=== PATIENT | female | born 1985 | race Caucasian/White ===

== ENCOUNTER 2016-10-26 13:57 | Emergency (ER) | payer OTHER ==
--- NOTE | 2016-10-26 16:16 | ED CLINICAL REPORT ---
Clinical Report - Physicians/Mid Levels [facility] [address] [place] [address] 10/26/2016 13:59 Patient: ANCA GUILLEN Time Seen: 14:09. Arrived- By private vehicle. Historian- patient. HISTORY OF PRESENT ILLNESS Chief Complaint: VAGINAL BLEEDING. ABDOMINAL CRAMPS. This started yesterday and still present. (moderate to severe). Modifying factors. Not worsened by anything. Not relieved by anything. The patient has had abdominal pain. No vaginal pain, low back pain, flank pain, pain with urination or urinary frequency. No urgency of urination. She has had irregular periods. Sexually active. (The patient states that the abdominal pain and cramping started with onset of vaginal bleeding yesterday. She states she has a history of polycystic ovarian disease, and that she has occasional severe cramps with menses. Patient states her last menstrual period was beginning of September. The patient states that her level bleeding goes up and down. At some points she has soaked 2 tampons an hour; however she changed her tampon about an hour ago and has not had any blood leakage yet.). Denies current . Similar symptoms previously: Occasionally. Recent medical care: Not recently seen/assessed. REVIEW OF SYSTEMS The patient has had nausea. She has had vomiting. No diarrhea, black stools, headache, fever or chills. No eye discomfort, sore throat, cough, difficulty breathing or chest pain. No skin rash, enlarged lymph nodes or joint pain. All systems otherwise negative, except as recorded above. PAST HISTORY Problems: Constipation. Gastroesophageal Reflux Disease. Clostridium difficile infection. Polycystic Ovary Disease. Diabetes Mellitus. Irritable Bowel Syndrome. Anxiety Reaction. Depression. Additional Surgeries: no known surgeries. Medications: None. Allergies: Hydrocodone. Morphine and Related. SOCIAL HISTORY Smoker- current status unknown. Occasional alcohol use. History of drug use: marijuana. ADDITIONAL NOTES The nursing notes have been reviewed. PHYSICAL EXAM Vital Signs: 10/26/2016 14:07 BP: 139/97. HR: 78. RR: 19. O2 saturation: 100%. Temp: 98.2 F. Pain level now: 8/10. Have been reviewed. Appearance: Alert. Oriented X3. No acute distress. HEENT: Normal external inspection. Neck: Neck supple. CVS: Heart sounds normal. Respiratory: No respiratory distress. Breath sounds normal. Abdomen: Soft. Moderate tenderness in the lower abdomen. Skin: Skin warm and dry. Normal skin color. No rash. Normal skin turgor. Extremities: Extremities nontender. No lower extremity edema. Neuro: (Grossly normal.). LABS, X-RAYS, AND EKG Laboratory Tests: UA-Culture if indicated: (TELLO: 10/26/2016 16:41) ( [facility] 10/26/2016 16:51) IP Test Result Flag Units (Reference) URINE COLOR YELLOW URINE APPEARANCE CLEAR URINE GLUCOSE NEGATIVE (NEGATIVE) URINE BILIRUBIN NEGATIVE (NEGATIVE) URINE KETONE TRACE (NEGATIVE) URINE SPECIFIC GRAVITY 1.020 (1.010-1.030) URINE PH 8.5 H (5.0-8.0) URINE PROTEIN TRACE (NEGATIVE) URINE UROBILINOGEN 0.2 EU/dL (0.2-1.0) URINE NITRITE NEGATIVE (NEGATIVE) URINE BLOOD 2+ (NEGATIVE) URINE LEUK ESTERASE NEGATIVE (NEGATIVE) Urine: (TELLO: 10/26/2016 16:41) ( [facility] 10/26/2016 16:50) Final results Test Result Flag Units (Reference) URINE NEGATIVE CBC w Diff: (TELLO: 10/26/2016 14:15) ( [facility] 10/26/2016 14:35) Final results Test Result Flag Units (Reference) WHITE BLOOD COUNT 13.3 H K/uL (4.5-11.5) RED BLOOD COUNT 4.81 M/uL (4.00-5.20) HEMOGLOBIN 12.7 gm/dL (12.0-16.0) HEMATOCRIT 38.6 % (36.0-46.0) MEAN CELL VOLUME 80 fL (80-100) MEAN CORPUSCULAR HGB 26 pg (26-34) MEAN CORPUSCULAR HGB CONC 33 g/dL (31-37) RED CELL DISTRIBUTION WIDTH 13.7 % (11.6-14.8) PLATELET COUNT 385 K/uL (150-400) NEUTROPHIL % 81.0 H % (50-75) LYMPH % 11.7 L % (25-40) MONO % 4.4 % (3-14) EOSINOPHIL % 2.3 % (0-4) BASOPHIL % 0.6 % (0-2) PT with INR: (TELLO: 10/26/2016 14:15) ( [facility] 10/26/2016 14:39) Final results Test Result Flag Units (Reference) INR 1.0 (0.8-1.2) Low Intensity Therapy: INR 1.5-2.0 PT range 18.5-23.1Mod.Intensity Therapy: INR 2.0-3.0 PT range 23.1-31.5High Intensity Therapy: INR 2.5-3.5 PT range 27.4-35.5High Intensity Therapy 2: INR 3.0-4.0 PT range 31.5-39.3 Serum Quantitative: (TELLO: 10/26/2016 14:15) ( [facility] 10/26/2016 14:55) Final results Test Result Flag Units (Reference) GLUCOSE 116 H mg/dL (70-110) BUN 10 mg/dL (7-18) CREATININE 0.7 mg/dL (0.6-1.3) Estimated GFR >60 mL/min Estimated GFR- >60 mL/min Note: Persistent reduction over 3 months in eGFR<60 mL/min/1.73 m2 defines CKD. Patients with eGFR values>=60 mL/min/1.73 m2 may also have CKD if evidence ofpersistent proteinuria. Additional information may be foundat www.kidney.org. SODIUM 143 mmol/L (136-145) POTASSIUM 3.3 L mmol/L (3.5-5.1) CHLORIDE 104 mmol/L (98-107) CARBON DIOXIDE 25 mmol/L (21-32) CALCIUM 9.5 mg/dL (8.5-10.1) BETA HCG, QUANTITATIVE <1 mIU/mL REFERENCE RANGE:Adult Males: <2 mIU/mLNon- Females: <6 mIU/mL Females:Approximate Approximate hCGGestational Age Range (mIU/mL) 0-1 week 0-501-2 weeks 40-3002-3 weeks 100-76034-5 weeks 500-84604-5 months 5,000-200,0002-3 months 10,000-100,0002nd trimester 3,000-50,0003rd trimester 1,000-50,000 Type & Screen: (TELLO: 10/26/2016 14:15) ( MsgRcvd 10/26/2016 15:19) Final results Test Result Flag Units (Reference) PATIENT BLOOD TYPE A Positive ANTIBODY SCREEN NEGATIVE . Pulse Oximetry: 10/26/2016 14:07 O2 saturation: 100%. (FIO2 - room air). Interpretation: normal. PROGRESS AND PROCEDURES Course of Care: patient was given a liter fluid, as well as doses of Dilaudid and Zofran and Phenergan and Reglan. She was worked up with a urinalysis which was negative, and ultrasound which was unremarkable, and blood work which showed a normal H&H. test was negative. Patient was found to be feeling better after the above interventions the onset of her pain and bleeding were simultaneous, and her lower abdominal tenderness is nonfocal. I do not believe at this time that the patient has appendicitis or urinary calculi. Patient counseled in person regarding the patient's stable condition, test results, diagnosis and need for follow-up. Old medical records reviewed. Disposition: Discharged. Condition: stable. CLINICAL IMPRESSION Moderate dysfunctional uterine bleeding. INSTRUCTIONS Drink plenty of fluids. (Your ultrasound and blood work look good.). Warnings: GENERAL WARNINGS: Return or contact your physician immediately if your condition worsens or changes unexpectedly, if not improving as expected, or if other problems arise. Prescription Medications: Zofran (orally disintegrating tablets) 4 mg: take 1-2 orally every 6 hours as needed for nausea. Dispense twenty (20). No refill. Substitution is permissible. Oxycodone/APAP 5 mg/325 mg: take 1-2 tablets orally every 6 hours as needed for pain. Dispense fifteen (15). No refill. Follow-up: Follow up with a script coordinator. Call for the next available appointment. Reason for referral: Follow up pelvic pain. Understanding of the discharge instructions verbalized by patient. (Electronically signed by Orly Ness MD 10/28/2016 3:05)
--- NOTE | 2016-10-26 16:16 | ED ORDER SUMMARY ---
..... Patient: ANCA GUILLEN OrderSheet [facility] VisitID: [id number] [address] [place] [address] 31y, F Registration Date/Time: 10/26/2016 ORDER SHEET Weight: 124.7 kg Allergies: Hydrocodone, Morphine and Related GENERAL ORDERS: CBC w Diff Urgent (14:10/26/2016 EHassan R.N. per protocol) (Ack 14:28 NHouse ER Tech1) (14:37 KPage-Kuchan R.N.) BMP Urgent (14:10/26/2016 EHassan R.N. per protocol) (Ack 14:28 NHouse ER Tech1) (14:37 KPage-Kuchan R.N.) Urine Urgent (14:10/26/2016 EHassan R.N. per protocol) (Ack 14:28 PAouse ER Tech1) (17:10 KPage-Kuchan R.N.) Serum Quantitative Urgent (14:10/26/2016 EHassan R.N. per protocol) (Ack 14:28 PAouse ER Tech1) (14:37 KPage-Kuchan R.N.) Type & Screen Urgent (14:26 10/26/2016 EHassan R.N. per protocol) (Ack 14:28 PAouse ER Tech1) (14:37 KPage-Kuchan R.N.) PT with INR Urgent (14:10/26/2016 EHassan R.N. per protocol) (Ack 14:28 PAouse ER Tech1) (14:37 KPage-Kuchan R.N.) UA-Culture if indicated Urgent (14:10/26/2016 EHassan R.N. per protocol) (Ack 14:28 NHouse ER Tech1) (17:10 KPage-Kuchan R.N.) NPO (14:10/26/2016 EHassan R.N. per protocol) (14:28 NHouse ER Tech1) US Pelvic Complete w Transvag Urgent (15:18 10/26/2016 Maki ZACARIAS) (Ack 15:21 PAouse ER Tech1) (17:10 KPage-Kuchan R.N.) MEDICATION ORDERS: Phenergan IV 25 mg (HIGH ALERT MEDICATION, NOW) (15:18 10/26/2016 Maki ZACARIAS) (15:24 Cari R.N.) IV FLUIDS: IV NS : initial bolus none -, then 1000 mL/hr for X1 (NOW) (14:24 10/26/2016 Cari R.N. verbal order read back to Maki ZACARIAS) (14:25 Cari R.N.) Zofran IV 4 mg (NOW) (14:10/26/2016 Cari R.N. verbal order read back to Maki ZACARIAS) (14:25 Cari R.N.) IV Saline Lock (14:10/26/2016 Cari R.N. per protocol) (14:26 Cari R.N.) Dilaudid IV 1 mg (HIGH ALERT MEDICATION, NOW) (14:27 10/26/2016 Maki ZACARIAS) (14:37 Aretha R.N.) Toradol IV 30 mg (NOW) (14:27 10/26/2016 Maki ZACARIAS) (14:37 Aretha R.N.) Benadryl IV 25 mg (NOW) (15:18 10/26/2016 Maki ZACARIAS) (15:23 Cari R.N.) Dilaudid IV 1 mg (HIGH ALERT MEDICATION, NOW) (15:25 10/26/2016 Maki ZACARIAS) (Ack 15:43 Aretha R.N.) (15:55 Aretha R.N.) Dilaudid IV 1 mg (HIGH ALERT MEDICATION, NOW) (16:57 10/26/2016 Maki ZACARIAS) (Ack 16:58 Ed-Arron R.N.) (17:13 Aretha R.N.) Reglan IV 10 mg (NOW) (16:57 10/26/2016 Maki ZACARIAS) (Ack 16:58 Ed-Arron R.N.) (17:14 Aretha R.N.) ORDER SHEET NOTES: [Electronically signed by Christine Saez R.N. (23:21 10/26/2016)] [Electronically signed by Orly Ness MD (03:05 10/28/2016)] [Electronically locked/signed by Christine Saez R.N. (23:21 10/26/2016)]
--- NOTE | 2016-10-26 16:16 | ED ORDER SUMMARY ---
..... Patient: ANCA GUILLEN OrderSheet [facility] VisitID: [id number] [address] [place] [address] 31y, F Registration Date/Time: 10/26/2016 ORDER SHEET Weight: 124.7 kg Allergies: Hydrocodone, Morphine and Related GENERAL ORDERS: CBC w Diff Urgent (14:10/26/2016 EHassan R.N. per protocol) (Ack 14:28 NHouse ER Tech1) (14:37 KPage-Kuchan R.N.) BMP Urgent (14:10/26/2016 EHassan R.N. per protocol) (Ack 14:28 NHouse ER Tech1) (14:37 KPage-Kuchan R.N.) Urine Urgent (14:10/26/2016 EHassan R.N. per protocol) (Ack 14:28 MAouse ER Tech1) (17:10 KPage-Kuchan R.N.) Serum Quantitative Urgent (14:10/26/2016 EHassan R.N. per protocol) (Ack 14:28 MAouse ER Tech1) (14:37 KPage-Kuchan R.N.) Type & Screen Urgent (14:26 10/26/2016 EHassan R.N. per protocol) (Ack 14:28 MAouse ER Tech1) (14:37 KPage-Kuchan R.N.) PT with INR Urgent (14:10/26/2016 EHassan R.N. per protocol) (Ack 14:28 MAouse ER Tech1) (14:37 KPage-Kuchan R.N.) UA-Culture if indicated Urgent (14:10/26/2016 EHassan R.N. per protocol) (Ack 14:28 NHouse ER Tech1) (17:10 KPage-Kuchan R.N.) NPO (14:10/26/2016 EHassan R.N. per protocol) (14:28 NHouse ER Tech1) US Pelvic Complete w Transvag Urgent (15:18 10/26/2016 Maki ZACARIAS) (Ack 15:21 MAouse ER Tech1) (17:10 KPage-Kuchan R.N.) MEDICATION ORDERS: Phenergan IV 25 mg (HIGH ALERT MEDICATION, NOW) (15:18 10/26/2016 Maki ZACARIAS) (15:24 Cari R.N.) IV FLUIDS: IV NS : initial bolus none -, then 1000 mL/hr for X1 (NOW) (14:24 10/26/2016 Cari R.N. verbal order read back to Maki ZACARIAS) (14:25 Cari R.N.) Zofran IV 4 mg (NOW) (14:10/26/2016 Cari R.N. verbal order read back to Maki ZACARIAS) (14:25 Cari R.N.) IV Saline Lock (14:10/26/2016 Cari R.N. per protocol) (14:26 Cari R.N.) Dilaudid IV 1 mg (HIGH ALERT MEDICATION, NOW) (14:27 10/26/2016 Maki ZACARIAS) (14:37 Aretha R.N.) Toradol IV 30 mg (NOW) (14:27 10/26/2016 Maki ZACARIAS) (14:37 Aretha R.N.) Benadryl IV 25 mg (NOW) (15:18 10/26/2016 Maki ZACARIAS) (15:23 Cari R.N.) Dilaudid IV 1 mg (HIGH ALERT MEDICATION, NOW) (15:25 10/26/2016 Maki ZACARIAS) (Ack 15:43 Aretha R.N.) (15:55 Aretha R.N.) Dilaudid IV 1 mg (HIGH ALERT MEDICATION, NOW) (16:57 10/26/2016 Maki ZACARIAS) (Ack 16:58 Ed-Arron R.N.) (17:13 Aretha R.N.) Reglan IV 10 mg (NOW) (16:57 10/26/2016 Maki ZACARIAS) (Ack 16:58 Ed-Arron R.N.) (17:14 Aretha R.N.) ORDER SHEET NOTES: [Electronically signed by Christine Saez R.N. (23:21 10/26/2016)] [Electronically signed by Orly Ness MD (03:05 10/28/2016)] [Electronically locked/signed by Christine Saez R.N. (23:21 10/26/2016)]
--- NOTE | 2016-10-26 16:16 | ED NURSING NOTES ---
Clinical Report - Nurses [facility] [address] [place] [address] 10/26/2016 13:59 Patient: ANCA GUILLEN TRIAGE Triage time 14:Oct 26 2016. Chief Complaint: VAGINAL BLEED and ABDOMINAL CRAMPS (pt started bleeding yesterday, reports not having normal periods due to pcos, today emesis not stop per pt, states 2 tampons in one hour). Alert. SEPSIS SCREEN: Sepsis Screen. Negative (no infection suspected/documented). --14:13 Christine Saez R.N. 14:07 10/26/16. BP: 139/97. HR: 78. RR: 19. O2 saturation: 100%. Temp: 98.2 F. Pain level now: 01/13. --14:13 Christine Saez R.N. Weight: 124.7 kg. Height/Length: 68 inches. BMI: 41.8. --14:12 Christine Saez R.N. Medications None. --14:11 Christine Saez R.N. Medication/allergy information source: the patient. --14:13 Christine Saez R.N. Allergies Hydrocodone. Morphine and Related. --14:11 Christine Saez R.N. History Arrived by private vehicle. Historian: patient. Accompanied by friend. This started yesterday. PAST MEDICAL HX: Immunizations: up-to-date. Last normal menstrual period- 1 days ago. SOCIAL HX: Smoker- current status unknown. Occasional alcohol use. History of drug use: marijuana. No infectious disease exposure. ABUSE ASSESSMENT: No report of abuse. SELF HARM ASSESSMENT: A self harm assessment was performed. The patient answered "no" to the question "Do you have thoughts of harming or killing yourself?". --14:13 Christine Saez R.N. PROBLEMS: UTI - Urinary Tract Infection. Gastroesophageal Reflux Disease. Clostridium difficile infection. Polycystic Ovary Disease. Irritable Bowel Syndrome. Depression. --14:11 Christine Saez R.N. ADDITIONAL SURGERIES: no known surgeries. Interventions ID and allergy band on patient. --14:13 Christine Saez R.N. PHYSICAL ASSESSMENT To room via wheelchair. Patient gowned. GENERAL / NEURO / PSYCH: Alert. Oriented X 4. Appears in pain. HEENT: Mucous membranes are pink. RESPIRATORY: Respirations not labored. CVS: Capillary refill less than 2 seconds. GI / : Abdomen soft. Bowel sounds within normal limits. Moderate vaginal bleeding present .1 pad per hour. SKIN: Skin is warm and dry. --14:14 Christine Saez R.N. NURSING PROGRESS NOTES 14:14 10/26/2016 Site #1 started via IV antecubital space with an 20g angiocath; one attempt. Blood drawn: rainbow set. Labeled in the presence of the patient and sent to the lab. Saline lock flushed with 10 mL saline. --14:14 Christine Saez R.N. Reassurance given to the patient. Patient identifiers checked. Call light placed in reach. Side rails up. Bed placed in lowest position. Brakes of bed on. Patient ready for evaluation- chart flagged. Patient waiting for evaluation. --14:15 Christine Saez R.N. ( pt provided an additional emesis bag, pt is coughing and spitting in). --14:24 Christine Saez R.N. ( MD at bedside, waiting further orders). --14:24 Christine Saez R.N. 14:25 10/26/2016 Started bag #1 1000 mL IV Fluids IV NS (Saline); at 1000 mL/hr over 1 hour(s) via site #1 via IV pump. Allergies verified and confirmed 5 rights. IV patency established. IV site checked: no pain, redness, or swelling. IV flushed thoroughly pre- and post-medication administration. --14:25 Ruma Holliday R.N. 14:25 10/26/2016 Zofran (Ondansetron HCl) IVP 4 mg given over 2 minute(s) via site #1. Allergies verified and confirmed 5 rights. IV patency established. IV site checked: no pain, redness, or swelling. IV flushed thoroughly pre- and post-medication administration. IVP given by RN. --14:25 Ruma Holliday R.N. 14:32 10/26/2016 Dilaudid (HYDROmorphone HCl PF) IVP 1 mg given. via site #1. Allergies verified, confirmed 5 rights and sedative warning given to the patient and patient's steward/stewardess third. IV patency established. IV site checked: no pain, redness, or swelling. IV flushed thoroughly pre- and post-medication administration. IVP given by RN. --14:37 Christine Saez R.N. 14:32 10/26/2016 Toradol IVP 30 mg given. via site #1. Allergies verified and confirmed 5 rights. IV patency established. IV site checked: no pain, redness, or swelling. IV flushed thoroughly pre- and post-medication administration. IVP given by RN. --14:37 Christine Saez R.N. ( pt placed on O2 sat monitor and bp prior to narcotic being given). --14:38 Christine Saez R.N. 15:23 10/26/2016 Benadryl (DiphenhydrAMINE HCl) IVP 25 mg given over 30 second(s) via site #1. Allergies verified, confirmed 5 rights and sedative warning given to the patient and patient's family. IV patency established. IV site checked: no pain, redness, or swelling. IV flushed thoroughly pre- and post-medication administration. IVP given by RN. --15:23 Ruma Holliday R.NMaría Elena 15:24 10/26/2016 PHENERGAN (Promethazine HCl) IVP 25 mg given over 30 second(s) via site #1. Allergies verified and confirmed 5 rights. IV patency established. IV site checked: no pain, redness, or swelling. IV flushed thoroughly pre- and post-medication administration. IVP given by RN. --15:24 Ruma Holliday R.NMaría Elena 15:47 10/26/2016 Dilaudid (HYDROmorphone HCl PF) IVP 1 mg given. via site #1. Allergies verified, confirmed 5 rights and sedative warning given to the patient. IV patency established. IV site checked: no pain, redness, or swelling. IV flushed thoroughly pre- and post-medication administration. IVP given by RN. --15:55 Christine Saez R.N. 17:13 10/26/2016 Dilaudid (HYDROmorphone HCl PF) IVP 1 mg given. via site #1. Allergies verified, confirmed 5 rights and sedative warning given to the patient and patient's family. IV patency established. IV site checked: no pain, redness, or swelling. IV flushed thoroughly pre- and post-medication administration. IVP given by RN. --17:13 Christine Saez R.N. 17:14 10/26/2016 Reglan (Metoclopramide HCl) IVP 10 mg given. via site #1. Allergies verified and confirmed 5 rights. IV patency established. IV site checked: no pain, redness, or swelling. IV flushed thoroughly pre- and post-medication administration. IVP given by RN (sivp over 2 minutes). --17:14 Christine Saez R.N. DISPOSITION / DISCHARGE Condition at departure: improved. No learning barriers present. Discharge instructions provided and reviewed with the patient. Reviewed medication(s) side effects, precautions and course information. Prescription(s) given to the patient. Patient verbalized understanding. Written instructions provided in Nepali. The patient was discharged by the physician. She was discharged home and accompanied by family. She left the Emergency Department ambulatory and via private vehicle. Family member driving. ( pt dc home with family, reports improvement in symptoms, no emesis, pain 10, rx given ambulatory to lobby with steady gait). --18:05 Christine Saez R.N. 18:04 10/26/16. BP: 122/72. HR: 67. RR: 15. O2 saturation: 99%. Temp: 98 F. Pain level now: 09/13. --18:05 Christine Saez R.N. 17:40 10/26/2016 Site #1 removed upon discharge. Bandaid applied. --18:05 Christine Saez R.N. Locked/Released at 10/26/2016 23:21 by Christine Saez R.N.
--- NOTE | 2016-10-26 16:16 | ED CLINICAL REPORT ---
Clinical Report - Physicians/Mid Levels [facility] [address] [place] [address] 10/26/2016 13:59 Patient: ANCA GUILLEN Time Seen: 14:09. Arrived- By private vehicle. Historian- patient. HISTORY OF PRESENT ILLNESS Chief Complaint: VAGINAL BLEEDING. ABDOMINAL CRAMPS. This started yesterday and still present. (moderate to severe). Modifying factors. Not worsened by anything. Not relieved by anything. The patient has had abdominal pain. No vaginal pain, low back pain, flank pain, pain with urination or urinary frequency. No urgency of urination. She has had irregular periods. Sexually active. (The patient states that the abdominal pain and cramping started with onset of vaginal bleeding yesterday. She states she has a history of polycystic ovarian disease, and that she has occasional severe cramps with menses. Patient states her last menstrual period was beginning of September. The patient states that her level bleeding goes up and down. At some points she has soaked 2 tampons an hour; however she changed her tampon about an hour ago and has not had any blood leakage yet.). Denies current . Similar symptoms previously: Occasionally. Recent medical care: Not recently seen/assessed. REVIEW OF SYSTEMS The patient has had nausea. She has had vomiting. No diarrhea, black stools, headache, fever or chills. No eye discomfort, sore throat, cough, difficulty breathing or chest pain. No skin rash, enlarged lymph nodes or joint pain. All systems otherwise negative, except as recorded above. PAST HISTORY Problems: Constipation. Gastroesophageal Reflux Disease. Clostridium difficile infection. Polycystic Ovary Disease. Diabetes Mellitus. Irritable Bowel Syndrome. Anxiety Reaction. Depression. Additional Surgeries: no known surgeries. Medications: None. Allergies: Hydrocodone. Morphine and Related. SOCIAL HISTORY Smoker- current status unknown. Occasional alcohol use. History of drug use: marijuana. ADDITIONAL NOTES The nursing notes have been reviewed. PHYSICAL EXAM Vital Signs: 10/26/2016 14:07 BP: 139/97. HR: 78. RR: 19. O2 saturation: 100%. Temp: 98.2 F. Pain level now: 8/10. Have been reviewed. Appearance: Alert. Oriented X3. No acute distress. HEENT: Normal external inspection. Neck: Neck supple. CVS: Heart sounds normal. Respiratory: No respiratory distress. Breath sounds normal. Abdomen: Soft. Moderate tenderness in the lower abdomen. Skin: Skin warm and dry. Normal skin color. No rash. Normal skin turgor. Extremities: Extremities nontender. No lower extremity edema. Neuro: (Grossly normal.). LABS, X-RAYS, AND EKG Laboratory Tests: UA-Culture if indicated: (TELLO: 10/26/2016 16:41) ( [facility] 10/26/2016 16:51) IP Test Result Flag Units (Reference) URINE COLOR YELLOW URINE APPEARANCE CLEAR URINE GLUCOSE NEGATIVE (NEGATIVE) URINE BILIRUBIN NEGATIVE (NEGATIVE) URINE KETONE TRACE (NEGATIVE) URINE SPECIFIC GRAVITY 1.020 (1.010-1.030) URINE PH 8.5 H (5.0-8.0) URINE PROTEIN TRACE (NEGATIVE) URINE UROBILINOGEN 0.2 EU/dL (0.2-1.0) URINE NITRITE NEGATIVE (NEGATIVE) URINE BLOOD 2+ (NEGATIVE) URINE LEUK ESTERASE NEGATIVE (NEGATIVE) Urine: (TLELO: 10/26/2016 16:41) ( [facility] 10/26/2016 16:50) Final results Test Result Flag Units (Reference) URINE NEGATIVE CBC w Diff: (TELLO: 10/26/2016 14:15) ( [facility] 10/26/2016 14:35) Final results Test Result Flag Units (Reference) WHITE BLOOD COUNT 13.3 H K/uL (4.5-11.5) RED BLOOD COUNT 4.81 M/uL (4.00-5.20) HEMOGLOBIN 12.7 gm/dL (12.0-16.0) HEMATOCRIT 38.6 % (36.0-46.0) MEAN CELL VOLUME 80 fL (80-100) MEAN CORPUSCULAR HGB 26 pg (26-34) MEAN CORPUSCULAR HGB CONC 33 g/dL (31-37) RED CELL DISTRIBUTION WIDTH 13.7 % (11.6-14.8) PLATELET COUNT 385 K/uL (150-400) NEUTROPHIL % 81.0 H % (50-75) LYMPH % 11.7 L % (25-40) MONO % 4.4 % (3-14) EOSINOPHIL % 2.3 % (0-4) BASOPHIL % 0.6 % (0-2) PT with INR: (TELLO: 10/26/2016 14:15) ( [facility] 10/26/2016 14:39) Final results Test Result Flag Units (Reference) INR 1.0 (0.8-1.2) Low Intensity Therapy: INR 1.5-2.0 PT range 18.5-23.1Mod.Intensity Therapy: INR 2.0-3.0 PT range 23.1-31.5High Intensity Therapy: INR 2.5-3.5 PT range 27.4-35.5High Intensity Therapy 2: INR 3.0-4.0 PT range 31.5-39.3 Serum Quantitative: (TELLO: 10/26/2016 14:15) ( [facility] 10/26/2016 14:55) Final results Test Result Flag Units (Reference) GLUCOSE 116 H mg/dL (70-110) BUN 10 mg/dL (7-18) CREATININE 0.7 mg/dL (0.6-1.3) Estimated GFR >60 mL/min Estimated GFR- >60 mL/min Note: Persistent reduction over 3 months in eGFR<60 mL/min/1.73 m2 defines CKD. Patients with eGFR values>=60 mL/min/1.73 m2 may also have CKD if evidence ofpersistent proteinuria. Additional information may be foundat [email or web address]. SODIUM 143 mmol/L (136-145) POTASSIUM 3.3 L mmol/L (3.5-5.1) CHLORIDE 104 mmol/L (98-107) CARBON DIOXIDE 25 mmol/L (21-32) CALCIUM 9.5 mg/dL (8.5-10.1) BETA HCG, QUANTITATIVE <1 mIU/mL REFERENCE RANGE:Adult Males: <2 mIU/mLNon- Females: <6 mIU/mL Females:Approximate Approximate hCGGestational Age Range (mIU/mL) 0-1 week 0-501-2 weeks 40-3002-3 weeks 100-93375-0 weeks 500-48401-8 months 5,000-200,0002-3 months 10,000-100,0002nd trimester 3,000-50,0003rd trimester 1,000-50,000 Type & Screen: (TELLO: 10/26/2016 14:15) ( MsgRcvd 10/26/2016 15:19) Final results Test Result Flag Units (Reference) PATIENT BLOOD TYPE A Positive ANTIBODY SCREEN NEGATIVE . Pulse Oximetry: 10/26/2016 14:07 O2 saturation: 100%. (FIO2 - room air). Interpretation: normal. PROGRESS AND PROCEDURES Course of Care: patient was given a liter fluid, as well as doses of Dilaudid and Zofran and Phenergan and Reglan. She was worked up with a urinalysis which was negative, and ultrasound which was unremarkable, and blood work which showed a normal H&H. test was negative. Patient was found to be feeling better after the above interventions the onset of her pain and bleeding were simultaneous, and her lower abdominal tenderness is nonfocal. I do not believe at this time that the patient has appendicitis or urinary calculi. Patient counseled in person regarding the patient's stable condition, test results, diagnosis and need for follow-up. Old medical records reviewed. Disposition: Discharged. Condition: stable. CLINICAL IMPRESSION Moderate dysfunctional uterine bleeding. INSTRUCTIONS Drink plenty of fluids. (Your ultrasound and blood work look good.). Warnings: GENERAL WARNINGS: Return or contact your physician immediately if your condition worsens or changes unexpectedly, if not improving as expected, or if other problems arise. Prescription Medications: Zofran (orally disintegrating tablets) 4 mg: take 1-2 orally every 6 hours as needed for nausea. Dispense twenty (20). No refill. Substitution is permissible. Oxycodone/APAP 5 mg/325 mg: take 1-2 tablets orally every 6 hours as needed for pain. Dispense fifteen (15). No refill. Follow-up: Follow up with a software product specialist. Call for the next available appointment. Reason for referral: Follow up pelvic pain. Understanding of the discharge instructions verbalized by patient. (Electronically signed by Orly Ness MD 10/28/2016 3:05)
--- NOTE | 2016-10-26 16:34 | DIAGNOSTIC IMAGING REPORT ---
PROCEDURE: US COMPLETE PELVIC W/TRANSVAG INDICATION: PELVIC PAIN TECHNIQUE: Transabdominal and endovaginal lion scale and color Doppler sonographic images of the female pelvis were obtained. COMPARISON: None. FINDINGS: Nabothian cysts TRANSABDOMINAL SCANS: The uterus is of normal size 5.2 x 4.0 x 5.3 cm Kidneys are normal. TRANSVAGINAL SCANS: The uterus is anteverted. Myometrium is normal. The endometrium measures 10 mm. Ovaries were not well seen. There is a trace of free fluid IMPRESSION: 1. Normal uterus and kidneys. 2. Ovaries not well seen. 3. Nabothian cysts.
--- NOTE | 2016-10-28 03:06 | ED MED RECONCILIATION SUMMARY ---
Patient: ANCA GUILLEN Medication Reconciliation Report [facility] VisitID: [id number] [address] [place] [address] 31y, F Registration Date/Time: 10/26/2016 Weight: 124.7 kg Height/Length: 68 in. BMI: 41.8 ALLERGIES: Hydrocodone, Morphine and Related The patient's Home Medications are listed below: NONE. The source(s) of the original Home Medication information: patient The following Medications were given to the patient in the Emergency Department: IV NS IV Fluids bolus 0, then 1000 mL/hr, administered: 10/26/2016 2:25:00 PM Zofran [IVP] IVP 4 mg, administered: 10/26/2016 2:25:00 PM Dilaudid [IVP] IVP 1 mg, administered: 10/26/2016 2:32:00 PM Toradol [IVP] IVP 30 mg, administered: 10/26/2016 2:32:00 PM Benadryl [IVP] IVP 25 mg, administered: 10/26/2016 3:23:00 PM PHENERGAN [IVP] IVP 25 mg, administered: 10/26/2016 3:24:00 PM Dilaudid [IVP] IVP 1 mg, administered: 10/26/2016 3:47:00 PM Dilaudid [IVP] IVP 1 mg, administered: 10/26/2016 5:13:00 PM Reglan [IVP] IVP 10 mg, administered: 10/26/2016 5:14:00 PM The following Medications were prescribed to the patient: Zofran (orally disintegrating tablets) 4 mg: take 1-2 orally every 6 hours as needed for nausea. Dispense twenty (20). No refill. Substitution is permissible. -- Orly Ness MD Oxycodone/APAP 5 mg/325 mg: take 1-2 tablets orally every 6 hours as needed for pain. Dispense fifteen (15). No refill. -- Orly Ness MD
--- NOTE | 2016-10-28 03:06 | ED DISCHARGE INSTRUCTIONS ---
Patient: ANCA GUILLEN General Instructions [facility] VisitID: [id number] [address] [place] [address] 31y, F Registration Date/Time: 10/26/2016 Moderate dysfunctional uterine bleeding. INSTRUCTIONS Drink plenty of fluids. (Your ultrasound and blood work look good.). Warnings: GENERAL WARNINGS: Return or contact your physician immediately if your condition worsens or changes unexpectedly, if not improving as expected, or if other problems arise. Prescription Medications: Zofran (orally disintegrating tablets) 4 mg: take 1-2 orally every 6 hours as needed for nausea. Dispense twenty (20). No refill. Substitution is permissible. Oxycodone/APAP 5 mg/325 mg: take 1-2 tablets orally every 6 hours as needed for pain. Dispense fifteen (15). No refill. Follow-up: Follow up with a crystalizer operator. Call for the next available appointment. Reason for referral: Follow up pelvic pain. Understanding of the discharge instructions verbalized by patient. ADDITIONAL INFORMATION Painful Menstrual Periods The uterus is a muscle and contracts normally during the menstrual cycle. The contraction pushes out the build-up of tissue that occurs each month inside the uterus. If the contraction is very strong, it can cause pain because the muscle is not getting enough oxygen for the amount of work it is doing. Pain with menstruation is called dysmenorrhea. The pain may feel like a dull ache or throbbing in the lower abdomen. It may spread to your lower back or inner thighs. In severe cases there may also be nausea, vomiting, loose stools, sweating or dizziness. There are two types of dysmenorrhea: Primary Dysmenorrhea (common menstrual cramps) usually appears within one or two years after you start your periods. It usually gets better or goes away as you get older or when you have a baby. The menstrual cramps usually start just before, or on the day of your period, and last 1-3 days. Treatment is with comfort measures and anti-inflammatory drugs as described below (see Home Care). If your pain is not controlled with these measures, your doctor may prescribe control pills. This will reduce the pain of each period. Secondary Dysmenorrhea starts later in life. The pain begins earlier in the menstrual cycle and lasts longer than common menstrual cramps. It is caused by a specific problem with the pelvic organs, such as: PID (pelvic inflammatory disease) -- an infection in the fallopian tubes Fibroids benign tumors within the wall of the uterus (not cancer) Endometriosis the tissue that lines the uterus spreads outside the uterus and grows there. This tissue swells and bleeds each month, just like the tissue in your uterus, and causes pain. IUD use -- especially in the first few months after placement Once the cause of secondary dysmenorrhea is found, it can be treated. Home Care: Most women with common menstrual cramping (primary dysmenorrhea) can remain active throughout their period. Many women find that regular exercise each werek reduces menstrual pain. If cramping is severe, rest in bed with a heating pad on the lower abdomen or lower back. A hot bath or massage to the lower back and abdomen may also give relief. Smoking can make symptoms worse. If you smoke, ask your doctor for help with a stop-smoking plan. Avoid caffeine and alcohol around the time of your period since these can make symptoms worse. Anti-inflammatory medicine such as aspirin, ibuprofen (Advil, Motrin) or naproxen (Aleve, Naprosyn) can be very helpful, especially if taken at the very first signs of bleeding or cramping . Acetaminophen (Tylenol) is not as effective for this problem. [NOTE: If you have chronic liver or kidney disease or ever had a stomach ulcer or GI bleeding, talk with your doctor before using these medicines.] If your pain is not controlled by the above measures, a prescription pain medicine may be required for a short time. Discuss this with your doctor. Follow Up with your doctor as advised. If you have just started menstruating in the past 1-2 years, and your pain is mild to moderate, your symptoms are most likely not a cause for concern. However, if menstrual cramps are severe enough to interfere with your daily activities, last longer than a few days, or if you are older and just started having menstrual pain, it is important to see your doctor for further evaluation. Get Prompt Medical Attention if any of the following occur: Fever over 100.4F (38.0C) with pelvic pain Uncontrolled menstrual pain or pain that lasts longer than usual or occurs between periods Unusual vaginal discharge between periods Heavy vaginal bleeding (soaking more than one pad an hour for three hours) Passage of pink or lion tissue from the vagina If you use tampons, watch for the following signs of Toxic Shock Syndrome and return at once: Fever over 102.0F (38.9C), with or without pelvic pain Vomiting, diarrhea Dizziness, weakness or fainting Rash that looks like a bad sunburn Irregular Vaginal Bleeding This is a condition in which bleeding occurs at unexpected times of the month. The bleeding may be heavier or assistant manager/embalmer than usual. Heavy bleeding may lead to anemia. If severe enough, anemia may cause you to look pale and feel weak or fatigued. You might have shortness of breath even with little exertion. The female hormones produced in your body every month may be out of balance. This imbalance leads to bleeding. Causes could include an ovarian cyst, emotional stress, pelvic infection. Failure to ovulate during your last cycle may also cause this problem. Home Care: If bleeding is heavy, rest and avoid heavy exertion. You may use acetaminophen (Tylenol) or ibuprofen (Motrin, Advil) to control pain, unless another pain medicine was prescribed. [NOTE: If you have chronic liver or kidney disease or ever had a stomach ulcer or GI bleeding, talk with your doctor before using these medicines.] Iron supplements may be prescribed for anemia. It takes about 4-6 weeks for the iron to correct the anemia. Take the medicine as directed. See your doctor for a repeat blood test after you finish the iron treatment. If hormones were prescribed to control your bleeding, take them exactly as directed. If you were prescribed a medicine called Provera (medroxyprogesterone), the bleeding should stop while you are taking it. Another period will start a few days after you finish the medicine. Follow Up with your doctor, or as advised, within the next 1-2 days if heavy bleeding continues. Otherwise, follow up within the next 1-2 weeks. Get Prompt Medical Attention if any of the following occur: Bleeding becomes heavy (soaking one pad an hour for three hours) Fever of 100.4F (38C) or higher, or as directed by your healthcare provider Increase in abdominal pain Weakness, dizziness or fainting You have been given the following additional information: Dysmenorrhea Dysfunctional Uterine Bleeding (Electronically signed by Orly Ness MD 10/28/2016 3:05)
--- NOTE | 2016-10-28 03:06 | ED MED RECONCILIATION SUMMARY ---
Patient: ANCA GUILLEN Medication Reconciliation Report [facility] VisitID: [id number] [address] [place] [address] 31y, F Registration Date/Time: 10/26/2016 Weight: 124.7 kg Height/Length: 68 in. BMI: 41.8 ALLERGIES: Hydrocodone, Morphine and Related The patient's Home Medications are listed below: NONE. The source(s) of the original Home Medication information: patient The following Medications were given to the patient in the Emergency Department: IV NS IV Fluids bolus 0, then 1000 mL/hr, administered: 10/26/2016 2:25:00 PM Zofran [IVP] IVP 4 mg, administered: 10/26/2016 2:25:00 PM Dilaudid [IVP] IVP 1 mg, administered: 10/26/2016 2:32:00 PM Toradol [IVP] IVP 30 mg, administered: 10/26/2016 2:32:00 PM Benadryl [IVP] IVP 25 mg, administered: 10/26/2016 3:23:00 PM PHENERGAN [IVP] IVP 25 mg, administered: 10/26/2016 3:24:00 PM Dilaudid [IVP] IVP 1 mg, administered: 10/26/2016 3:47:00 PM Dilaudid [IVP] IVP 1 mg, administered: 10/26/2016 5:13:00 PM Reglan [IVP] IVP 10 mg, administered: 10/26/2016 5:14:00 PM The following Medications were prescribed to the patient: Zofran (orally disintegrating tablets) 4 mg: take 1-2 orally every 6 hours as needed for nausea. Dispense twenty (20). No refill. Substitution is permissible. -- Orly Ness MD Oxycodone/APAP 5 mg/325 mg: take 1-2 tablets orally every 6 hours as needed for pain. Dispense fifteen (15). No refill. -- Orly Ness MD
--- NOTE | 2016-10-28 03:06 | ED MAR SUMMARY ---
..... Medication Administration Record [facility] [address] [place] [address] Patient: ANCA GUILLEN Visit ID: [id number] 31y, F Weight: 124.7 kg Height/Length: 68 in BMI: 41.8 ALLERGIES: Morphine and Related, Hydrocodone Start 14:10/26/2016 Ruma Holliday R.N. Medication Administered: IV NS (SALINE), Dose: IV Fluids over 1 hour(s), Rate: 1000 mL/hr, Dispensed: 1000 mL bag, Site: #1 AC. Medication Ordered: IV NS : initial bolus none -, then 1000 mL/hr for X1 (NOW). Given 14:10/26/2016 Ruma Holliday R.N. Medication Administered: ZOFRAN [IVP] (ONDANSETRON HCL), Dose: 4 mg IVP over 2 minute(s), Site: #1 AC. Medication Ordered: Zofran IV 4 mg (NOW). Given 14:10/26/2016 Christine Saez R.N. Medication Administered: DILAUDID [IVP] (HYDROMORPHONE HCL PF), Dose: 1 mg IVP, Site: #1 AC. Medication Ordered: Dilaudid IV 1 mg (HIGH ALERT MEDICATION, NOW). Given 14:10/26/2016 Christine Saez R.N. Medication Administered: TORADOL [IVP], Dose: 30 mg IVP, Site: #1 AC. Medication Ordered: Toradol IV 30 mg (NOW). Given 15:10/26/2016 Ruma Holliday R.N. Medication Administered: BENADRYL [IVP] (DIPHENHYDRAMINE HCL), Dose: 25 mg IVP over 30 second(s), Site: #1 AC. Medication Ordered: Benadryl IV 25 mg (NOW). Given 15:10/26/2016 Ruma Holliday R.N. Medication Administered: PHENERGAN [IVP] (PROMETHAZINE HCL), Dose: 25 mg IVP over 30 second(s), Site: #1 AC. Medication Ordered: Phenergan IV 25 mg (HIGH ALERT MEDICATION, NOW). Given 15: 10/26/2016 Christine Saez R.N. Medication Administered: DILAUDID [IVP] (HYDROMORPHONE HCL PF), Dose: 1 mg IVP, Site: #1 AC. Medication Ordered: Dilaudid IV 1 mg (HIGH ALERT MEDICATION, NOW). Given 17:13 10/26/2016 Christine Saez R.N. Medication Administered: DILAUDID [IVP] (HYDROMORPHONE HCL PF), Dose: 1 mg IVP, Site: #1 AC. Medication Ordered: Dilaudid IV 1 mg (HIGH ALERT MEDICATION, NOW). Given 17:14 10/26/2016 Christine Saez R.N. Medication Administered: REGLAN [IVP] (METOCLOPRAMIDE HCL), Dose: 10 mg IVP, Site: #1 AC. Medication Ordered: Reglan IV 10 mg (NOW).
--- NOTE | 2016-10-28 03:06 | ED MAR SUMMARY ---
..... Medication Administration Record [facility] [address] [place] [address] Patient: ANCA GUILLEN Visit ID: [id number] 31y, F Weight: 124.7 kg Height/Length: 68 in BMI: 41.8 ALLERGIES: Morphine and Related, Hydrocodone Start 14:10/26/2016 Ruma Holliday R.N. Medication Administered: IV NS (SALINE), Dose: IV Fluids over 1 hour(s), Rate: 1000 mL/hr, Dispensed: 1000 mL bag, Site: #1 AC. Medication Ordered: IV NS : initial bolus none -, then 1000 mL/hr for X1 (NOW). Given 14:10/26/2016 Ruma Holliday R.N. Medication Administered: ZOFRAN [IVP] (ONDANSETRON HCL), Dose: 4 mg IVP over 2 minute(s), Site: #1 AC. Medication Ordered: Zofran IV 4 mg (NOW). Given 14:10/26/2016 Christine Saez R.N. Medication Administered: DILAUDID [IVP] (HYDROMORPHONE HCL PF), Dose: 1 mg IVP, Site: #1 AC. Medication Ordered: Dilaudid IV 1 mg (HIGH ALERT MEDICATION, NOW). Given 14:10/26/2016 Christine Saez R.N. Medication Administered: TORADOL [IVP], Dose: 30 mg IVP, Site: #1 AC. Medication Ordered: Toradol IV 30 mg (NOW). Given 15:10/26/2016 Ruma Holliday R.N. Medication Administered: BENADRYL [IVP] (DIPHENHYDRAMINE HCL), Dose: 25 mg IVP over 30 second(s), Site: #1 AC. Medication Ordered: Benadryl IV 25 mg (NOW). Given 15:10/26/2016 Ruma Holliday R.N. Medication Administered: PHENERGAN [IVP] (PROMETHAZINE HCL), Dose: 25 mg IVP over 30 second(s), Site: #1 AC. Medication Ordered: Phenergan IV 25 mg (HIGH ALERT MEDICATION, NOW). Given 15: 10/26/2016 Christine Saez R.N. Medication Administered: DILAUDID [IVP] (HYDROMORPHONE HCL PF), Dose: 1 mg IVP, Site: #1 AC. Medication Ordered: Dilaudid IV 1 mg (HIGH ALERT MEDICATION, NOW). Given 17:13 10/26/2016 Christine Saez R.N. Medication Administered: DILAUDID [IVP] (HYDROMORPHONE HCL PF), Dose: 1 mg IVP, Site: #1 AC. Medication Ordered: Dilaudid IV 1 mg (HIGH ALERT MEDICATION, NOW). Given 17:14 10/26/2016 Christine Saez R.N. Medication Administered: REGLAN [IVP] (METOCLOPRAMIDE HCL), Dose: 10 mg IVP, Site: #1 AC. Medication Ordered: Reglan IV 10 mg (NOW).
== END 2016-10-26 17:32 | disposition home or self-care (01) ==
LOC: ED SRH 13:57
DX: N93.8 Other specified abnormal uterine and vaginal bleeding (principal); E28.2 Polycystic ovarian syndrome; E11.9 Type 2 diabetes mellitus without complications; Z88.5 Allergy status to narcotic agent
CPT/HCPCS: 90001; 90004; 90047; 90155; 90197; 90469; 91004; 93070; 94060; 95059

== ENCOUNTER 2016-11-04 12:18 | Emergency (ER) | payer OTHER ==
--- NOTE | 2016-11-04 15:13 | DIAGNOSTIC IMAGING REPORT ---
PROCEDURE: US ABDOMEN ULTRASOUND-LIMITED INDICATION: RUQ PAIN TECHNIQUE: Encinas scale and color Doppler sonographic images of the abdomen were obtained without comparison. COMPARISON: None. FINDINGS: The liver is enlarged and demonstrates increased echogenicity No mass or intrahepatic biliary dilatation. The gallbladder is normal without stones or sludge. The wall is normal thickness measuring 1.9 mm No pericholecystic fluid or Davidson sign. The extrahepatic common duct is normal measuring 3 mm The visualized pancreas is normal without ductal dilatation or peripancreatic fluid collection. The abdominal aorta is normal in its course and caliber. The retrohepatic inferior vena cava is patent. There is appropriate hepatopetal flow in the portal vein. The right kidney measures 12.7 cm in length. There is no perihepatic or perisplenic ascites. IMPRESSION: 1. Fatty liver
--- NOTE | 2016-11-04 15:48 | ED CLINICAL REPORT ---
Clinical Report - Physicians/Mid Levels [facility] [address] [place] [address] 11/04/2016 12:17 Patient: ANCA GUILLEN Time Seen: 13:37 Nuno 2016. Arrived- By private vehicle. Historian- patient. HISTORY OF PRESENT ILLNESS Chief Complaint: ABDOMINAL PAIN. This started 10 days and is still present. It is described as "pain" and it is described as located in the right abdomen and in the upper abdomen. The patient has had nausea, loss of appetite and vomiting. No diarrhea. (patient reports abdominal pain over the last 10 days, epigastric and right-sided nature, with nausea and vomiting. Patient denies history of similar pain. Patient reports being seen in the emergency department recently, as well as her primary care provider at [facility] yesterday. Patient denies any sick contacts or diarrhea. Patient decreased appetite, secondary to pain as well as nausea and vomiting. She believes foods make the pain worse. Denies heavy drinking history.). Similar symptoms previously: REVIEW OF SYSTEMS No constipation, black stools, difficulty with urination, pain with urination or fever. No headache, chest pain, difficulty breathing or chills. All systems otherwise negative, except as recorded above. PAST HISTORY Problems: Vaginal Bleeding. UTI - Urinary Tract Infection. Constipation. Gastroesophageal Reflux Disease. Clostridium difficile infection. Polycystic Ovary Disease. Diabetes Mellitus. Diarrhea. Vomiting. Irritable Bowel Syndrome. Abdominal Pain. Anxiety Reaction. Depression. Additional Surgeries: no known surgeries. Medications: zofran 4mg every 6 hours- last used at 0900. Allergies: Hydrocodone. (migraines, dizzy ) Morphine and Related. ("pass out" dizzy, migraines). SOCIAL HISTORY Never smoker. Alcohol use. History of drug use: marijuana. ADDITIONAL NOTES The nursing notes have been reviewed. PHYSICAL EXAM Vital Signs: 11/04/2016 12:26 BP: 150/91. HR: 80. RR: 24. O2 saturation: 100%. Temp: 98.2 F. Pain level now: 8/10. Appearance: Anxious. Appears to be in pain. Patient in mild distress. Eyes: Eyes normal inspection. ENT: Ears normal. Nose normal. Neck: Normal inspection. No lymphadenopathy or thyromegaly. CVS: Normal heart rate and rhythm. Heart sounds normal. Respiratory: No respiratory distress. No decreased air movement or wheezes. Abdomen: Nontender. Bowel sounds normal. Back: Normal inspection. No CVA tenderness. Skin: Skin warm. Neuro: Oriented X 3. LABS, X-RAYS, AND EKG Abdominal Sonogram: (IMPRESSION: 1. Fatty liver Electronically Final signed by:Mikael Tabor MD 11/04/2016 3:14:18 PM). Laboratory Tests: UA-Culture if indicated: (TELLO: 11/04/2016 13:30) ( [facility] 11/04/2016 14:07) Final results Test Result Flag Units (Reference) URINE COLOR YELLOW URINE APPEARANCE CLEAR URINE GLUCOSE NEGATIVE (NEGATIVE) URINE BILIRUBIN NEGATIVE (NEGATIVE) URINE KETONE 3+ (NEGATIVE) URINE SPECIFIC GRAVITY 1.020 (1.010-1.030) URINE PH 8.0 (5.0-8.0) URINE PROTEIN TRACE (NEGATIVE) URINE UROBILINOGEN 1.0 EU/dL (0.2-1.0) URINE NITRITE NEGATIVE (NEGATIVE) URINE BLOOD NEGATIVE (NEGATIVE) URINE LEUK ESTERASE NEGATIVE (NEGATIVE) URINE RBC NONE SEEN rbc/hpf (0-1) URINE WBC RARE wbc/hpf (0-1) URINE EPITHELIAL CELLS 3-5 EPI/hpf (0-5) URINE BACTERIA FEW (1+) (NONE SEEN) URINE COMMENT CULT NOT INDICATED 1+ AMORPHOUS CRYSTALSURINE CULTURES ARE SET-UP BASED ON THE FOLLOWING CRITERIA:POSITIVE NITRITEPOSITIVE LEUKOCYTE ESTERASEGREATER THAN 10 WHITE BLOOD CELLSMODERATE (2+) OR GREATER BACTERIA Urine: (TELLO: 11/04/2016 13:30) ( [facility] 11/04/2016 14:01) Final results Test Result Flag Units (Reference) URINE NEGATIVE CBC wo Diff: (TELLO: 11/04/2016 13:10) ( [facility] 11/04/2016 13:26) Final results Test Result Flag Units (Reference) WHITE BLOOD COUNT NO REFLEX 12.8 H K/uL (4.5-11.5) RED BLOOD COUNT 4.40 M/uL (4.00-5.20) HEMOGLOBIN 11.8 L gm/dL (12.0-16.0) HEMATOCRIT 35.1 L % (36.0-46.0) MEAN CELL VOLUME 80 fL (80-100) MEAN CORPUSCULAR HGB 27 pg (26-34) MEAN CORPUSCULAR HGB CONC 34 g/dL (31-37) RED CELL DISTRIBUTION WIDTH 13.6 % (11.6-14.8) PLATELET COUNT 291 K/uL (150-400) CMP: (TELLO: 11/04/2016 13:10) ( MsgRcvd 11/04/2016 13:44) Final results Test Result Flag Units (Reference) GLUCOSE 103 mg/dL (70-110) BUN 10 mg/dL (7-18) CREATININE 0.7 mg/dL (0.6-1.3) Estimated GFR >60 mL/min Estimated GFR- >60 mL/min Note: Persistent reduction over 3 months in eGFR<60 mL/min/1.73 m2 defines CKD. Patients with eGFR values>=60 mL/min/1.73 m2 may also have CKD if evidence ofpersistent proteinuria. Additional information may be foundat www.kidney.org. SODIUM 142 mmol/L (136-145) POTASSIUM 3.4 L mmol/L (3.5-5.1) CHLORIDE 105 mmol/L (98-107) CARBON DIOXIDE 24 mmol/L (21-32) CALCIUM 8.9 mg/dL (8.5-10.1) TOTAL PROTEIN 7.7 g/dL (6.4-8.2) ALBUMIN 3.8 g/dL (3.3-5.0) BILIRUBIN, TOTAL 1.5 H mg/dL (0.0-1.0) ALKALINE PHOSPHATASE 73 U/L (46-116) AST (SGOT) 13 L U/L (15-37) ALT (SGPT) 33 U/L (12-78) LIPASE 89 U/L (73-393) . PROGRESS AND PROCEDURES Course of Care: ultrasound in emergency department is unremarkable. Patient with dehydration, given IV hydration in the emergency department. Abdomen is soft, mild epigastric tenderness. Patient with no shortness of breath. Normal cardiac in the emergency department, I do not suspect PE, or any respiratory concerns such as pneumonia. Lungs are clear. Patient with an anterior poor that was reviewed in detail. No signs of cystitis, non female. Patient with no signs of acute surgical abdomen. 11/04/2016 15:04 BP: 122/64. HR: 72. RR: 16. O2 saturation: 100%. Patient is stable. Symptoms better. Patient/family counseled. Differential Diagnosis: I considered gastritis, gastroenteritis, acute appendicitis, diverticulitis, small bowel obstruction, gallbladder disease, liver disease, pancreatic disease, biliary colic, splenic disease, splenic injury, splenic rupture, abdominal pathology, intraabdominal abscess, ascites, urinary tract infection, cystitis, ovarian cyst, pelvic inflammatory disease, abdominal aortic aneurysm, myocardial infarction, pneumonia, diabetic ketoacidosis, medications and sickle cell anemia as a possible cause of abdominal pain in this patient. This is a partial list of diagnoses considered. Disposition orders not written. Disposition: Discharged. Condition: good. CLINICAL IMPRESSION Chronic abdominal pain of unknown cause. INSTRUCTIONS Drink plenty of fluids. Warnings: Further evaluation is necessary. Prescription Medications: Phenergan 12.5 mg tablets: take 1 orally every 6 hours as needed for nausea. No refill. Substitution is permissible Phenergan 12.5 mg suppositories: insert 1 rectally every 6 hours. Dispense ten (10). No refill. Substitution is permissible OTC Medications: Take acetaminophen (Tylenol, Datril, etc.) according to label instructions. Available over the counter. Follow-up: Follow up with your doctor tomorrow. Understanding of the discharge instructions verbalized by patient. (Electronically signed by Cynthia Bhardwaj P.A.-C 11/04/2016 15:51)
--- NOTE | 2016-11-04 15:48 | ED ORDER SUMMARY ---
..... Patient: ANCA GUILLEN OrderSheet [facility] VisitID: [id number] [address] [place] [address] 31y, F Registration Date/Time: 11/04/2016 ORDER SHEET Weight: 120.2 kg (stated) Allergies: Hydrocodone, Morphine and Related GENERAL ORDERS: CBC wo Diff Urgent (12:50 11/04/2016 DDean R.N. verbal order read back to Segundo ZACARIAS) (12:53 KHoerner) BMP Urgent (12:50 11/04/2016 DDean R.N. verbal order read back to Segundo ZACARIAS) (12:53 KHoerner) (Cancelled: Other13:27 EKoroleva P.A.-C) CMP Urgent (13:28 11/04/2016 EKoroleva P.A.-C) (Ack 13:31 KHoerner) (13:31 KHoerner) Lipase Urgent (13:28 11/04/2016 EKoroleva P.A.-C) (Ack 13:31 KHoerner) (13:31 KHoerner) US Abdomen Limited (No) Urgent (13:28 11/04/2016 EKoroleva P.A.-C) (Ack 13:31 KHoerner) (18:04 Kendal R.N.) UA-Culture if indicated Urgent (13:28 11/04/2016 EKoroleva P.A.-C) (Ack 13:31 KHoerner) (14:01 DDean R.N.) Urine Urgent (13:28 11/04/2016 EKoroleva P.A.-C) (Ack 13:31 KHoerner) (14:01 DDean R.N.) Vitals (15:00 11/04/2016 EKoroleva P.A.-C) (15:06 TBergley) MEDICATION ORDERS: Phenergan IV 12.5 mg (HIGH ALERT MEDICATION, NOW) (13:28 11/04/2016 EKoroleva P.A.-C) (Ack 13:32 DDean R.N.) (14:02 DDean R.N.) IV FLUIDS: IV NS : initial bolus none -, then 1000 mL/hr for X1 (NOW) (12:35 11/04/2016 DDean R.N. per protocol) (12:36 DDean R.N.) Zofran IV 4 mg (NOW) (12:48 11/04/2016 DDean R.N. verbal order read back to Segundo ZACARIAS) (12:48 DDean R.N.) Toradol IV 30 mg (NOW) (13:27 11/04/2016 EKorolekristine P.A.-C) (Ack 13:32 DDean R.N.) (14:02 DDean R.N.) Reglan IV 10 mg (NOW) (13:57 11/04/2016 EKhernánleva P.A.-C) (14:03 DDean R.N.) ORDER SHEET NOTES: [Electronically signed by Cynthia BhardwajAMaría Elena-Idalia (15:51 11/04/2016)] [Electronically signed by Stacey Grace R.N. (18:05 11/04/2016)] [Electronically locked/signed by Stacey Grace R.N. (18:05 11/04/2016)]
--- NOTE | 2016-11-04 15:48 | ED NURSING NOTES ---
Clinical Report - Nurses [facility] [address] [place] [address] 11/04/2016 12:17 Patient: ANCA GUILLEN TRIAGE Triage time 1225. Acuity: LEVEL 3. Chief Complaint: ABDOMINAL PAIN, NAUSEA and VOMITING and (pt was seen here on 10/26, and at [facility] yesterday for same. Pt tearful, states she continues to vomit dispite zofran tablets and hasn't eatten x 2 days. c/o generalized abd and chest pain). 12:25. --12:31 Thu Cotter R.N. 12:26 11/04/16. BP: 150/91. HR: 80. RR: 24. O2 saturation: 100%. Temp: 98.2 F. Pain level now: 01/13. --12:31 Thu Cotter R.N. Weight: 120.2 kg stated. Height/Length: 68 inches Per Patient. BMI: 40.3. --12:29 Thu Cotter R.N. Medications zofran 4mg every 6 hours- last used at 0900. --12:33 Thu Cotter R.N. Allergies Hydrocodone. (migraines, dizzy ) Morphine and Related. ("pass out" dizzy, migraines) --12:32 Thu Cotter R.N. History Arrived by private vehicle. Historian: patient. Accompanied by (DROPPED OFF). Primary physician (glory mobley). Onset. (over a week). PAST MEDICAL HX: Last normal menstrual period- finnished period on Tuesday. SURGERY HX: No history of previous surgery. SOCIAL HX: Never smoker. Occasional alcohol use. History of drug use: marijuana. (last used today). --12:31 Thu Cotter R.N. PROBLEMS: Vaginal Bleeding. UTI - Urinary Tract Infection. Constipation. Gastroesophageal Reflux Disease. Clostridium difficile infection. Polycystic Ovary Disease. Diabetes Mellitus. Irritable Bowel Syndrome. Anxiety Reaction. Depression. --12:29 Thu Cotter R.N. ADDITIONAL SURGERIES: no known surgeries. Interventions ID band on patient. To treatment room. --12:31 Thu Cotter R.N. PHYSICAL ASSESSMENT 12:25. To room via wheelchair. Patient gowned. GENERAL / NEURO / PSYCH: Alert. Oriented X 4. Appears anxious and in distress. RESPIRATORY: Respiratory distress (pt hyperventilating, reminded frequently to slow down breathing). CVS: Capillary refill less than 2 seconds. GI / : The patient has had nausea. Abdominal tenderness. SKIN: Skin is warm and dry. --12:34 Thu Cotter R.N. NURSING PROGRESS NOTES 12:25. Patient gowned. Head of bed elevated. Reassurance given. Patient identifiers checked. Call light placed in reach. Side rails up. Bed placed in lowest position. Patient ready for evaluation- chart flagged. --12:31 Thu Cotter R.N. 12:34 11/04/2016 Site #1 started via IV in the left hand with an 20g angiocath, with aseptic technique and good blood return; one attempt. Saline lock flushed with 10 mL saline (no blood available-- done by LAWANDA Segura). --12:35 Thu Cotter R.N. 12:36 11/04/2016 Started bag #1 1000 mL IV Fluids IV NS (Saline); at 1000 mL/hr over 1 hour(s) via site #1 --12:36 Thu Cotter R.N. 12:48 11/04/2016 Zofran (Ondansetron HCl) IVP 4 mg given over 1 minute(s) via site #1. IV patency established. IV site checked: no pain, redness, or swelling. IV flushed thoroughly pre- and post-medication administration. IVP given by RN. --12:48 Thu Cotter R.N. 12:55. Patient ID band checked for patient name and birthdate: patient confirmed. Blood samples drawn by lab per protocol ; labeled in presence of the patient and sent to lab: rainbow set. --13:12 Thu Cotter R.N. 13:30 11/04/16. BP: 128/67. HR: 69. RR: 22. O2 saturation: 100%. Temp: deferred. Pain level now: 11/13. Additional comments: nausea better, now 10/13 . --14:00 Thu Cotter R.N. 13:30. Patient ID band checked for patient name and birthdate: patient confirmed. Clean catch urine collected with return of yellow-colored urine; sample sent to lab for urinalysis and culture. Specimen labeled in the presence of the patient. ( Pt ambulated to bathroom, steady on her feet. UA obtained and sent to lab). --14:00 Thu Cotter R.N. 14:00 pt states that she feels like "the pain is burning from the inside out" ERPA notified. Reglan ordered and given. --14:01 Thu Cotter R.N. 13:05 11/04/2016 Toradol IVP 30 mg given over 1 minute(s) via site #1. IV patency established. IV site checked: no pain, redness, or swelling. IV flushed thoroughly pre- and post-medication administration. --14:02 Thu Cotter R.N. 13:36 11/04/2016 PHENERGAN (Promethazine HCl) IVP 12.5 mg given over 1 minute(s) via site #1. IV patency established. IV site checked: no pain, redness, or swelling. IV flushed thoroughly pre- and post-medication administration. IVP given by RN. --14:02 Thu Cotter R.N. 14:00 11/04/2016 Reglan (Metoclopramide HCl) IVP 10 mg given over 2 minute(s) via site #1. IV patency established. IV site checked: no pain, redness, or swelling. IV flushed thoroughly pre- and post-medication administration. IVP given by RN. --14:03 Thu Cotter R.N. 14:03 11/04/16. ( US at bedside to do exam). --14:03 Thu Cotter R.N. 14:06 11/04/16. ( Pt had stated her pain was better, but when US came to do exam she suddenly started to c/o worsening pain and nausea. refusing to let US do exam - ERPA notified). --14:06 Thu Cotter R.N. 14:19 11/04/16. ( Pt now states that she is ready to do the US . ERPA notified, and US called back). --14:19 Thu Cotter R.N. 14:27 11/04/16. ( US at bedside attempting exam again). --14:27 Thu Cotter R.N. 16:20. Reassessment after procedure and medication administered. She is calm and resting quietly. Overall patient status is improved- she states feels better. SKIN: Skin is warm and dry. --18:04 Stacey Grace R.N. DISPOSITION / DISCHARGE Departure time: 1620. Condition at departure: improved and stable. No learning barriers present. Discharge instructions provided and reviewed with the patient. Patient verbalized understanding. Written instructions provided in Lithuanian. The patient was discharged home and unaccompanied at time of discharge called for a ride. She left the Emergency Department ambulatory and via private vehicle. FALL RISK ASSESSMENT: Fall risk assessment completed. No fall risk identified. --18:03 Stacey Grace R.N. 16:20 11/04/16. BP: 118/64. HR: 65. RR: 16. O2 saturation: 100% on room air. Temp: 98.1 F (oral). Pain level now: 07/16. --18:03 Stacey Grace R.N. 16:20 11/04/2016 Site #1 removed upon discharge. Catheter intact. Bandaid applied. --18:03 Stacey Grace R.N. Locked/Released at 11/04/2016 18:05 by Stacey Grace R.N.
--- NOTE | 2016-11-04 15:48 | ED ORDER SUMMARY ---
..... Patient: ANCA GUILLEN OrderSheet [facility] VisitID: [id number] [address] [place] [address] 31y, F Registration Date/Time: 11/04/2016 ORDER SHEET Weight: 120.2 kg (stated) Allergies: Hydrocodone, Morphine and Related GENERAL ORDERS: CBC wo Diff Urgent (12:50 11/04/2016 DDean R.N. verbal order read back to Segundo ZACARIAS) (12:53 KHoerner) BMP Urgent (12:50 11/04/2016 DDean R.N. verbal order read back to Segundo ZACARIAS) (12:53 KHoerner) (Cancelled: Other13:27 EKoroleva P.A.-C) CMP Urgent (13:28 11/04/2016 EKoroleva P.A.-C) (Ack 13:31 KHoerner) (13:31 KHoerner) Lipase Urgent (13:28 11/04/2016 EKoroleva P.A.-C) (Ack 13:31 KHoerner) (13:31 KHoerner) US Abdomen Limited (No) Urgent (13:28 11/04/2016 EKoroleva P.A.-C) (Ack 13:31 KHoerner) (18:04 Kendal R.N.) UA-Culture if indicated Urgent (13:28 11/04/2016 EKoroleva P.A.-C) (Ack 13:31 KHoerner) (14:01 DDean R.N.) Urine Urgent (13:28 11/04/2016 EKoroleva P.A.-C) (Ack 13:31 KHoerner) (14:01 DDean R.N.) Vitals (15:00 11/04/2016 EKoroleva P.A.-C) (15:06 TBergley) MEDICATION ORDERS: Phenergan IV 12.5 mg (HIGH ALERT MEDICATION, NOW) (13:28 11/04/2016 EKoroleva P.A.-C) (Ack 13:32 DDean R.N.) (14:02 DDean R.N.) IV FLUIDS: IV NS : initial bolus none -, then 1000 mL/hr for X1 (NOW) (12:35 11/04/2016 DDean R.N. per protocol) (12:36 DDean R.N.) Zofran IV 4 mg (NOW) (12:48 11/04/2016 DDean R.N. verbal order read back to Segundo ZACARIAS) (12:48 DDean R.N.) Toradol IV 30 mg (NOW) (13:27 11/04/2016 EKorolekristine P.A.-C) (Ack 13:32 DDean R.N.) (14:02 DDean R.N.) Reglan IV 10 mg (NOW) (13:57 11/04/2016 EKhernánleva P.A.-C) (14:03 DDean R.N.) ORDER SHEET NOTES: [Electronically signed by Cynthia BhardwajAMaría Elena-Idalia (15:51 11/04/2016)] [Electronically signed by Stacey Grace R.N. (18:05 11/04/2016)] [Electronically locked/signed by Stacey Grace R.N. (18:05 11/04/2016)]
--- NOTE | 2016-11-04 18:05 | ED DISCHARGE INSTRUCTIONS ---
Patient: ANCA GUILLEN General Instructions [facility] VisitID: [id number] [address] [place] [address] 31y, F Registration Date/Time: 11/04/2016 Chronic abdominal pain of unknown cause. INSTRUCTIONS Drink plenty of fluids. Warnings: Further evaluation is necessary. Prescription Medications: Phenergan 12.5 mg tablets: take 1 orally every 6 hours as needed for nausea. No refill. Substitution is permissible Phenergan 12.5 mg suppositories: insert 1 rectally every 6 hours. Dispense ten (10). No refill. Substitution is permissible OTC Medications: Take acetaminophen (Tylenol, Datril, etc.) according to label instructions. Available over the counter. Follow-up: Follow up with your doctor tomorrow. Understanding of the discharge instructions verbalized by patient. ADDITIONAL INFORMATION Abdominal Pain, Unknown Cause (Female) The exact cause of your abdominal (stomach) pain is not certain. This does not mean that this is something to worry about, or the right tests were not done. Everyone likes to know the exact cause of the problem, but sometimes with abdominal pain, there is no clear-cut cause, and this could be a good thing. The good news is that your symptoms can be treated, and you will feel better. Your condition does not seem serious now; however, sometimes the signs of a serious problem may take more time to appear. For this reason,it is important for you to watch for any new symptoms, problems,or worsening of your condition. Over the next few days, the abdominal pain may come and go, or be continuous. Other common symptoms can include nausea and vomiting. Sometimes it can be difficult to tell if you feel nauseous, you may just feel bad and not associate that feeling with nausea. Constipation, diarrhea, and a fever may go along with the pain. The pain may continue even if treated correctly over the following days. Depending on how things go, sometimes the cause can become clear and may require further or different treatment. Additional evaluations, medications, or tests may be needed. Home care Your health care provider may prescribe medications for pain, symptoms, or an infection. Follow the health care provider's instructions for taking these medications. General care Rest until your next exam. No strenuous activities. Try to find positions that ease discomfort. A small pillow placed on the abdomen may help relieve pain. Something warm on your abdomen (such as a heating pad) may help, but be careful not to burn yourself. Diet Do not force yourself to eat, especially if having cramps, vomiting, or diarrhea. Water is important so you do not get dehydrated. Soup may also be good. Sports drinks may also help, especially if they are not too acidic. Make sure you don't drink sugary drinks as this can make things worse. Take liquids in small amounts. Do not guzzle them. Caffeine sometimes makes the pain and cramping worse. Avoid dairy products if you have vomiting or diarrhea. Don't eat large amounts at a time. Wait a few minutes between bites. Eat a diet low in fiber (called a low-residue diet). Foods allowed include refined breads, white rice, fruit and vegetable juices without pulp, tender meats. These foods will pass more easily through the intestine. Avoid whole-grain foods, whole fruits and vegetables, meats, seeds and nuts, fried or fatty foods, dairy, alcohol and spicy foods until your symptoms go away. Follow-up care Follow up with your health care provider as instructed, or if your pain does not begin to improve in the next 24 hours. When to seek medical care Seek prompt medical care if any of the following occur: Pain gets worse or moves to the right lower abdomen New or worsening vomiting or diarrhea Swelling of the abdomen Unable to pass stool for more than three days Fever of 100.4F (38C) or higher, or as directed by your healthcare provider. Blood in vomit or bowel movements (dark red or black color) Jaundice (yellow color of eyes and skin) Weakness, dizziness Chest, arm, back, neck or jaw pain Unexpected vaginal bleeding or missed period Call 911 Call emergency services if any of the following occur: Trouble breathing Confusion Fainting or loss of consciousness Rapid heart rate Seizure Epigastric Pain (Uncertain Cause) Epigastric pain can be a sign of disease in the upper abdomen. Common causes include: Acid reflux (stomach acid flowing up into the esophagus) Gastritis (irritation of the stomach lining) Peptic Ulcer Disease Inflammation of the pancreas Gallstone Infection in the gallbladder Pain may be dull or burning. It may spread upward to the chest or to the back. There may be other symptoms such as belching, bloating, cramps or hunger pains. There may be weight loss or poor appetite, nausea or vomiting. Since the diagnosis of your pain is not certain yet, further tests will be needed. Sometimes the doctor will treat you for the most likely condition to see if there is improvement before doing further tests. Home Care: Unless told otherwise, you may try antacids (Mylanta or Maalox) help neutralize stomach acid. This may relieve your pain. Take 1-2 tablespoons or tablets one hour after meals and at bedtime. The liquid form coats the stomach better than the chewable tablets and is preferred. If Tagamet (cimetidine), Zantac (ranitidine), or Carafate (sucralfate) has also been prescribed, allow one hour between taking this medicine and taking the antacids. Avoid foods that irritate the stomach. Follow a light diet until you are feeling better. Avoid alcohol, caffeine, and tobacco. Talk to your doctor before taking any [id number]-[id number] medicine that contains aspirin or an anti-inflammatory drug such as ibuprofen, Advil, Motrin, Naprosyn, or Aleve. Follow Up with your doctor or as advised if you do not improve over the next 48 hours. Get Prompt Medical Attention if any of the following occur: Stomach pain worsens or moves to the right lower part of the abdomen Chest pain appears, or if it worsens or spreads to the chest, back, neck, shoulder, or arm Frequent vomiting (cant keep down liquids) Blood in the stool or vomit (red or black color) Feeling weak or dizzy, fainting, or having trouble breathing Fever of 100.4F (38C) or higher, or as directed by your healthcare provider Abdominal swelling Symptoms With Uncertain Cause [Adult] Based on the exam and any tests that were performed today, the exact cause of your symptoms is not certain. While your condition does not seem serious, the signs of a serious problem may take more time to appear. Therefore, it is important for you to watch for any new symptoms or worsening of your condition.Follow up with your doctor or this facility, as directed.A repeat physical exam or additional testing at a later time may uncover a cause for your symptoms that is not evident today. Home Care: Resume your usual activities and diet when this feels comfortable to do so. Follow Up with your doctor, or as advised by our staff.Contact your doctor sooner if your symptoms do not begin to improve in the next few days. [NOTE: If you had an x-ray, CT scan, ultrasound, or ECG (electrocardiogram), it will be reviewed by a specialist. You will be notified of any new findings that may affect your care.] Get Prompt Medical Attention if any of the following occur: Current symptoms get worse New symptoms appear Heard Diet A bland diet is used for patients with an upset stomach. It consists of foods that are mild and easy to digest. It is better to eat small frequent meals rather than three large meals a day. BEVERAGES OK: Fruit juices, non-caffeinated teas and coffee, non-carbonated fernandez AVOID: Carbonated beverage, caffeinated tea and coffee, all alcoholic beverages BREAD OK: Refined white, wheat or rye bread, jian or soda crackers, [place] toast, plain rolls, bagels AVOID: Whole-grain bread CEREAL OK: Refined cereals: cooked or ready to eat AVOID: Whole grain cereals and granola, or those containing bran, seeds or nuts DESSERTS OK: Peanut butter and all others except those to "avoid" AVOID: Chocolate, cocoa, coconut, popcorn, nuts, seeds, jam, marmalade FRUITS OK: Canned, cooked, frozen or fresh fruits without seeds or tough skin AVOID: Olives, skin and seeds of fruit MEATS OK: All fresh or preserved meat, fish and fowl AVOID: Any that are prepared with those spices to "avoid" CHEESE & EGGS OK: Eggs, cottage cheese, cream cheese, other cheeses AVOID: All cheeses made with those spices to "avoid" POTATOES & PASTA OK: Potato, rice, macaroni, noodles, spaghetti AVOID: None SOUPS OK: All soups without heavy seasoning AVOID: Soups made with those spices to "avoid" VEGETABLES OK: Canned, cooked, fresh or frozen mildly flavored vegetables without seeds, skins or coarse fiber AVOID: Vegetables prepared with those spices to "avoid"; skin and seeds of vegetables and those with coarse fiber SPICES OK: Salt, lemon and squaxin juice, vinegar, all extracts, alexandre, cinnamon, thyme, mace, allspice, paprika AVOID: Cable powder, cloves, pepper, seed spices, garlic, gravy pickles, highly seasoned salad dressings Clear Liquid Diet Clear liquids are any liquid that you can see through as well as those that are very easy to digest. This is used while the body is recovering from irritation or infection of the stomach or intestinal tract. It may also be used before special procedures or surgery. This diet is to be used no more than three days. You may include the following items. Adults Adults should drink a total of 23 quarts of liquid per day. It may be easier to drink small frequent servings rather than a few large ones. Liquids can include: Fruit juices.Strained orange juice or lemonade (no pulp), apple, grape and cranberry juice, clear fruit drinks, sports drinks Beverages.Sport drinks, sodas, mineral water (plain or flavored), tea, black coffee, liquid gelatin (add twice the recommended amount of water) Soups.Clear broth, consomm, bouillon Desserts.Plain gelatin, popsicles, fruit juice bars Children Over 2 years old The following liquids are acceptable for children over age 2: Fruit juices.Strained orange juice or lemonade (no pulp), apple, grape and cranberry juice, clear fruit drinks Beverages. Sports drinks, sodas, mineral water (plain or flavored), tea, liquid gelatin (add twice the recommended amount of water) Soups. Clear broth, consomm, bouillon Desserts. Plain gelatin, popsicles, fruit juice bars Children under 2 years old Oral rehydration fluids such are available at drug stores and most grocery stores without a prescription. You have been given the following additional information: Abdominal Pain, Unknown Cause, (Female) Epigastric Pain (Uncertain Cause) Symptoms With Uncertain Cause Diet, Heard (Adult) Diet, Clear Liquid (Electronically signed by Cynthia Bhardwaj P.A.-C 11/04/2016 15:51)
--- NOTE | 2016-11-04 18:05 | ED MED RECONCILIATION SUMMARY ---
Patient: ANCA GUILLEN Medication Reconciliation Report [facility] VisitID: [id number] [address] [place] [address] 31y, F Registration Date/Time: 11/04/2016 Weight: 120.2 kg Height/Length: 68 in. BMI: 40.3 ALLERGIES: Hydrocodone, Morphine and Related The patient's Home Medications are listed below: THE FOLLOWING MEDICATIONS NEED TO BE RECONCILED: zofran 4mg every 6 hours- last used at 0900 The source(s) of the original Home Medication information: Not obtained. The following Medications were given to the patient in the Emergency Department: IV NS IV Fluids bolus 0, then 1000 mL/hr, administered: 11/04/2016 12:36:00 PM Zofran [IVP] IVP 4 mg, administered: 11/04/2016 12:48:00 PM Toradol [IVP] IVP 30 mg, administered: 11/04/2016 1:05:00 PM PHENERGAN [IVP] IVP 12.5 mg, administered: 11/04/2016 1:36:00 PM Reglan [IVP] IVP 10 mg, administered: 11/04/2016 2:00:00 PM The following Medications were prescribed to the patient: Take acetaminophen (Tylenol, Datril, etc.) according to label instructions. Available over the counter. -- Cynthia Bhardwaj P.A.-Idalia Phenergan 12.5 mg tablets: take 1 orally every 6 hours as needed for nausea. No refill. Substitution is permissible -- Cynthia Bhardwaj P.A.-Idalia Phenergan 12.5 mg suppositories: insert 1 rectally every 6 hours. Dispense ten (10). No refill. Substitution is permissible -- Cynthia Bhardwaj P.AMaría Elena-Idalia
--- NOTE | 2016-11-04 18:05 | ED MAR SUMMARY ---
..... Medication Administration Record [facility] [address] [place] [address] Patient: ANCA GUILLEN Visit ID: [id number] 31y, F Weight: 120.2 kg Height/Length: 68 in BMI: 40.3 ALLERGIES: Hydrocodone, Morphine and Related Start 12:36 11/04/2016 Thu Cotter R.N. Medication Administered: IV NS (SALINE), Dose: IV Fluids over 1 hour(s), Rate: 1000 mL/hr, Dispensed: 1000 mL bag, Site: #1 left hand. Medication Ordered: IV NS : initial bolus none -, then 1000 mL/hr for X1 (NOW). Given 12:48 11/04/2016 Thu Cotter R.N. Medication Administered: ZOFRAN [IVP] (ONDANSETRON HCL), Dose: 4 mg IVP over 1 minute(s), Site: #1 left hand. Medication Ordered: Zofran IV 4 mg (NOW). Given 13:05 11/04/2016 Thu Cotter R.N. Medication Administered: TORADOL [IVP], Dose: 30 mg IVP over 1 minute(s), Site: #1 left hand. Medication Ordered: Toradol IV 30 mg (NOW). Given 13:36 11/04/2016 Thu Cotter R.N. Medication Administered: PHENERGAN [IVP] (PROMETHAZINE HCL), Dose: 12.5 mg IVP over 1 minute(s), Site: #1 left hand. Medication Ordered: Phenergan IV 12.5 mg (HIGH ALERT MEDICATION, NOW). Given 14:00 11/04/2016 Thu Cotter R.N. Medication Administered: REGLAN [IVP] (METOCLOPRAMIDE HCL), Dose: 10 mg IVP over 2 minute(s), Site: #1 left hand. Medication Ordered: Reglan IV 10 mg (NOW).
--- NOTE | 2016-11-04 18:05 | ED MED RECONCILIATION SUMMARY ---
Patient: ANCA GUILLEN Medication Reconciliation Report [facility] VisitID: [id number] [address] [place] [address] 31y, F Registration Date/Time: 11/04/2016 Weight: 120.2 kg Height/Length: 68 in. BMI: 40.3 ALLERGIES: Hydrocodone, Morphine and Related The patient's Home Medications are listed below: THE FOLLOWING MEDICATIONS NEED TO BE RECONCILED: zofran 4mg every 6 hours- last used at 0900 The source(s) of the original Home Medication information: Not obtained. The following Medications were given to the patient in the Emergency Department: IV NS IV Fluids bolus 0, then 1000 mL/hr, administered: 11/04/2016 12:36:00 PM Zofran [IVP] IVP 4 mg, administered: 11/04/2016 12:48:00 PM Toradol [IVP] IVP 30 mg, administered: 11/04/2016 1:05:00 PM PHENERGAN [IVP] IVP 12.5 mg, administered: 11/04/2016 1:36:00 PM Reglan [IVP] IVP 10 mg, administered: 11/04/2016 2:00:00 PM The following Medications were prescribed to the patient: Take acetaminophen (Tylenol, Datril, etc.) according to label instructions. Available over the counter. -- Cynthia Bhardwaj P.A.-Idalia Phenergan 12.5 mg tablets: take 1 orally every 6 hours as needed for nausea. No refill. Substitution is permissible -- Cynthia Bhardwaj P.A.-Idalia Phenergan 12.5 mg suppositories: insert 1 rectally every 6 hours. Dispense ten (10). No refill. Substitution is permissible -- Cynthia Bhardwaj P.AMaría Elena-Idalia
--- NOTE | 2016-11-04 18:05 | ED MAR SUMMARY ---
..... Medication Administration Record [facility] [address] [place] [address] Patient: ANCA GUILLEN Visit ID: [id number] 31y, F Weight: 120.2 kg Height/Length: 68 in BMI: 40.3 ALLERGIES: Hydrocodone, Morphine and Related Start 12:36 11/04/2016 Thu Cotter R.N. Medication Administered: IV NS (SALINE), Dose: IV Fluids over 1 hour(s), Rate: 1000 mL/hr, Dispensed: 1000 mL bag, Site: #1 left hand. Medication Ordered: IV NS : initial bolus none -, then 1000 mL/hr for X1 (NOW). Given 12:48 11/04/2016 Thu Cotter R.N. Medication Administered: ZOFRAN [IVP] (ONDANSETRON HCL), Dose: 4 mg IVP over 1 minute(s), Site: #1 left hand. Medication Ordered: Zofran IV 4 mg (NOW). Given 13:05 11/04/2016 Thu Cotter R.N. Medication Administered: TORADOL [IVP], Dose: 30 mg IVP over 1 minute(s), Site: #1 left hand. Medication Ordered: Toradol IV 30 mg (NOW). Given 13:36 11/04/2016 Thu Cotter R.N. Medication Administered: PHENERGAN [IVP] (PROMETHAZINE HCL), Dose: 12.5 mg IVP over 1 minute(s), Site: #1 left hand. Medication Ordered: Phenergan IV 12.5 mg (HIGH ALERT MEDICATION, NOW). Given 14:00 11/04/2016 Thu Cotter R.N. Medication Administered: REGLAN [IVP] (METOCLOPRAMIDE HCL), Dose: 10 mg IVP over 2 minute(s), Site: #1 left hand. Medication Ordered: Reglan IV 10 mg (NOW).
== END 2016-11-04 16:20 | disposition home or self-care (01) ==
LOC: ED SRH 12:18
DX: R10.11 Right upper quadrant pain (principal); E86.0 Dehydration; E11.9 Type 2 diabetes mellitus without complications; K21.9 Gastro-esophageal reflux disease without esophagitis; Z88.5 Allergy status to narcotic agent; F12.10 Cannabis abuse, uncomplicated
CPT/HCPCS: 90004; 90074; 90100; 91295; 92235; 93070